=== PATIENT | male | born 1965 | race Hispanic/Latino ===

== ENCOUNTER 2024-09-25 18:53 | Emergency (ER) | payer BC, OTHER ==
[~2024-09-25] VITALS: Ht 175.3 cm; Wt 119.7 kg
[~2024-09-25 18:53] MED LIST: FURO20TA4 PO; OMEG100014 PO; SULF1TAB42 PO
--- NOTE | 2024-09-25 19:21 | ERN ---
ED Note History of Present Illness Stated Complaint: RUQ PAIN. RUE Chief Complaint: Abdominal Pain Time Seen by MD: 19:06 Time Seen by Midlevel: 19:06 Dictation: The patient is a 59-year-old male with history of hypertension who presents to the emergency department with complaints of right lower abdominal pain associated with nausea onset 2:30 p.m.. Patient denies any diarrhea or constipation. Reports pain radiates down his right leg. Patient denies any fevers but was febrile during triage. Allergies: Coded Allergies: No Known Drug Allergies (Unverified Allergy, Unknown, 02/20/14) Home Meds Active Scripts Sulfamethoxazole/Trimethoprim (Bactrim Ds Tablet) 1 Each Tablet, 1 EACH PO BID, #20 TAB Prov:GERMAN ELDRIDGE MD 03/13/14 Furosemide (Furosemide) 20 Mg Tablet, 20 MG PO Q3D PRN for EDEMA, #15 TAB 1 Ref ill Prov:SIMI VELARDE MD 02/21/14 Reported Medications [place]-3 Fatty Acids ([place]-3) 1,000 Mg Capsule, 1000 MG PO TID, CAP 02/21/14 Past Medical History Past Medical History: Hypertension Surgical History: None RN Note Reviewed/Agreed w/PFSH: Yes Review of System Dictation Constitutional: Negative for ,chills, and weight loss positive for fever Eyes: Negative for injury, pain,redness, and discharge ENT: Negative for injury,pain or swelling Cardiovascular: Negative for chest pain, palpitations, and edema Respiratory: Negative for shortness of breath, cough, and wheezing, Abdomen/GI: Negative for vomiting, diarrhea, and constipation positive for abdominal pain, nausea Back: Negative for injury and pain : Negative for injury, bleeding and discharge MS/Extremity: Negative for injury and deformity Skin: Negative for rash, and discoloration Neuro: Negative for headache, weakness, numbness, tingling, and seizure Psych: Negative for suicide ideation, homicidal ideation, and hallucinations Initial Vital Sign VS Vital Signs Date Time Temp Pulse Resp B/P (MAP) Pulse Ox O2 Delivery O2 Flow Rate FiO2 09/25/24 18:55 102.0 109 16 149/76 97 Room Air 0 09/25/24 20:18 21 Physical Exam Dictation Vital Signs reviewed General Appearance: Alert, oriented x 3, no acute distress, well developed, nourished. Head and Face: non-traumatic. Eyes: PERRL, pink conjunctivas, eyelid no trauma, anterior chamber with arcus senilis. Ears: Pinnas intact and no signs of trauma or erythema ear canals clear and no discharge TM no erythema Nose: No discharge, no bleeding. Oropharynx: Mouth normal, tongue pink. pharynx clear,no erythema, tonsils no exudates, no abscesses noted, mucous membrane moist Neck: Supple, non-tender, no thyromegaly, no masses, no JVD, no bruits Breast:Deferred Chest:No tenderness, no crepitus, no paradoxical movement, no retractions Lungs:Clear, well-ventilated, symmetric, no rales, no wheezing, no rhonchi, no stridor, good breath sounds bilaterally Heart: Regular rate, regular rhythm, no murmur, no gallops Vascular: no peripheral edema, Abdomen: Soft, positive bowel sounds, nondistended, no guarding, nontender, no rebound, no masses no hepatomegaly, no splenomegaly, no Charles's sign, no hernias. Rectal: Deferred Genital: Deferred Neurological: Normal speech, motor function intact, sensory function intact Musculoskeletal: Neck nontender, full range of motion, back nontender, full range of motion, Extremities: nontender, full range of motion Skin: Color pink, dry, no turgor, no rash, no lacerations, no abrasions, no contusions. Lymphatic: Deferred Results (Laboratory/Radiology) Laboratory/Radiology Laboratory Tests Test 09/25/24 19:50 09/25/24 22:23 09/25/24 23:15 White Blood Count 14.1 K/uL (4.8-10.8) H Red Blood Count 4.55 MIL/uL (4.50-6.20) Hemoglobin 14.3 g/dL (14.0-18.0) Hematocrit 41.8 % (42-54) L Mean Corpuscular Volume 91.9 fL (79-99) Mean Corpuscular Hemoglobin 31.4 pg (27.0-33.0) Mean Corpuscular Hemoglobin Concent 34.2 g/dL (32.0-36.0) Red Cell Distribution Width 12.0 % (11.0-15.5) Platelet Count 206 K/uL (130-400) Mean Platelet Volume 11.5 fL (7.5-10.5) H Immature Granulocyte % (Auto) 0.4 % (0-1) Neutrophils (%) (Auto) 87.8 % (40.0-77.0) H Lymphocytes (%) (Auto) 6.0 % (21.0-51.0) L Monocytes (%) (Auto) 5.2 % (3.0-13.0) Eosinophils (%) (Auto) 0.2 % (0.0-8.0) Basophils (%) (Auto) 0.4 % (0.0-5.0) Neutrophils # (Auto) 12.3 K/uL (1.8-7.7) H Lymphocytes # (Auto) 0.9 K/uL (1.0-4.8) L Monocytes # (Auto) 0.7 K/uL (0.1-1.0) Eosinophils # (Auto) 0.03 K/uL (0.00-0.70) Basophils # (Auto) 0.05 K/uL (0.00-0.20) Absolute Immature Granulocyte (auto 0.05 K/uL (0-1) Nucleated Red Blood Cells 0.0 % (0.0-0.19) White Cell Morphology Comment See comments Sodium Level 137 mmol/L (136-145) Potassium Level 4.1 mmol/L (3.5-5.1) Chloride Level 103 mmol/L (101-111) Carbon Dioxide Level 29 mmol/L (21-32) Blood Urea Nitrogen 12 mg/dL (7-18) Creatinine 1.1 mg/dL (0.5-1.3) Glomerular Filtration Rate Calc 78 mL/min (>90) Random Glucose 117 mg/dL (70-105) H Lactic Acid Level 1.6 mmol/L (0.8-2.5) Total Calcium 9.1 mg/dL (8.5-10.1) Total Bilirubin 0.5 mg/dL (0.2-1.0) Direct Bilirubin 0.1 mg/dL (0.0-0.3) Aspartate Amino Transf (AST/SGOT) 21 U/L (10-37) Alanine Aminotransferase (ALT/SGPT) 32 U/L (12-78) Alkaline Phosphatase 93 U/L (50-136) Troponin I High Sensitivity < 4 ng/L (4-75) L Total Protein 7.5 g/dL (6.0-8.3) Albumin 3.8 g/dL (3.5-5.0) Lipase 25 U/L (16-77) Urine Color COLORLESS (YELLOW) Urine Appearance CLEAR (CLEAR) Urine pH 6.5 (5.0-8.0) Urine Specific [place] 1.038 (1.001-1.031) Urine Protein NEGATIVE mg/dL (NEGATIVE) Urine Glucose (UA) NEGATIVE mg/dL (NEGATIVE) Urine Ketones NEGATIVE mg/dL (NEGATIVE) Urine Occult Blood NEGATIVE (NEGATIVE) Urine Nitrate NEGATIVE (NEGATIVE) Urine Bilirubin NEGATIVE mg/dL (NEGATIVE) Urine Urobilinogen 0.2 mg/dL (0.2-1.0) Urine Leukocyte Esterase NEGATIVE Violet/uL Urine RBC 2-5 /HPF (0-1) H Urine WBC 0-1 /HPF (0-1) Urine Bacteria None /HPF (None Seen) Influenza Type A Antigen Negative For Type A Influenza Type B Antigen Negative For Type B SARS-CoV-2 Antigen (Rapid) PRESUMPTIVE NEGATIVE Group A Streptococcus Rapid positive (NEGATIVE) *A REASON: right lower abd pain ORDERING PHYSICIAN: RALF MONTALVO NEUROLOGY SPECIALIST PROCEDURE: ABD PEL W - CT ABDOMEN/PELVIS W/CONTRAST CT ABDOMEN/PELVIS W/CONTRAST HISTORY: Bilateral abdominal pain COMPARISON: None TECHNIQUE: Multiple sequential axial images of the abdomen and pelvis were obtained from the dome of the diaphragm through symphysis pubis. Patient was given 100 cc of Omnipaque through intravenous route. Oral contrast was not given. FINDINGS: No pleural effusion is seen bilaterally. There is no evidence of parenchymal disease or pulmonary nodule of the visualized lower lungs. Degenerative changes of the thoracolumbar spine are present. The heart is not enlarged. Liver measures 22%. Gallbladder is distended. The liver, spleen, adrenal glands and pancreas are unremarkable. There is no evidence of hydronephrosis bilaterally. No evidence of renal stone is seen. Fecal material is seen in the colon. There are normal size retroperitoneal and mesenteric lymph nodes. No ascites is seen. No CT evidence of acute appendicitis is seen. Pelvic sidewalls are symmetric bilaterally. Bladder is well distended without wall thickening. IMPRESSION: 1. No acute findings. CT was performed with one or more following dose reduction techniques: automated exposure control, adjustment of the mA and kv according to patient's size, or use of a iterative reconstruction technique. Labs Reviewed?: Yes ED Course ED Course Orders Procedure Category Date Status Time Cbc With Differential LAB 09/25/24 Complete 19:11 Urinalysis Profile LAB 09/25/24 Complete 19:11 12 Lead Ekg Tracing- EKG 09/25/24 Complete Technical 19:11 Morphine 4mg Syg PHA 09/25/24 Complete (Morphine 4mg Syg) 19:30 Ondansetron 4mg Inj PHA 09/25/24 Complete (Zofran 4mg Inj) 19:30 Lipase LAB 09/25/24 Complete 19:11 Basic Metabolic Panel LAB 09/25/24 Complete 19:11 Hepatic Function Panel LAB 09/25/24 Complete 19:11 Blood Cult PORFIRIO 09/25/24 In Process 19:11 Acetaminophen 500mg PHA 09/25/24 Complete Tab (Tylenol 500mg T 19:30 Zosyn 3.375gm+Ns 50ml PHA 09/25/24 Complete (Zosyn 3.375gm+Ns 19:11 0.9%Nacl 1000ml (Ns PHA 09/25/24 Complete 1000ml) 19:30 Troponin I High LAB 09/25/24 Complete Sensitivity 19:11 Lactic Acid LAB 09/25/24 Complete 19:11 Ct Abdomen/Pelvis CT 09/25/24 Resulted W/Contrast 19:51 Iohexol (Omnipaque) PHA 09/25/24 Complete 20:59 Us Abdominal Ruq\Ltd US 09/25/24 Taken 21:40 Chest 1vw RAD 09/25/24 Taken 22:59 Covid19 (Sars Antigen LAB 09/25/24 Complete Rapid) 22:59 Influenza Type A & B, LAB 09/25/24 Complete Rapid 22:59 Rapid (Group A Strep) LAB 09/25/24 Complete 22:59 Ketorolac PHA 09/25/24 Complete Tromethamine 30mg/Ml 23:30 Current Medications Medications (Trade) Dose Ordered Sig/Travis Route PRN Reason Start Time Stop Time Status Last Admin Dose Admin Acetaminophen (TYLenol 500MG TAB) 1,000 mg ONCE ONCE PO 09/25/24 19:30 09/25/24 19:31 DC 09/25/24 20:10 Iohexol (Omnipaque) 35,000 mg STK-MED ONCE IV 09/25/24 20:59 09/25/24 20:59 DC Ketorolac Tromethamine (toRADol) 30 mg ONCE ONCE IM 09/25/24 23:30 09/25/24 23:31 DC 09/25/24 23:56 Morphine Sulfate (morPHINE 4MG SYG) 4 mg ONCE ONCE IVP 09/25/24 19:30 09/25/24 19:31 DC 09/25/24 20:02 Ondansetron HCl (zoFRAN 4MG INJ) 4 mg ONCE ONCE IVP 09/25/24 19:30 09/25/24 19:31 DC 09/25/24 20:10 Piperacillin Sod/ Tazobactam Sod 50 ml @ 200 mls/hr STAT STAT IVPB 09/25/24 19:11 09/25/24 19:25 DC 09/25/24 20:00 Sodium Chloride 3,591 ml @ 1,197 mls/hr ONCE ONCE IV 09/25/24 19:30 09/25/24 22:29 DC 09/25/24 20:00 Vital Signs Date Time Temp Pulse Resp B/P (MAP) Pulse Ox O2 Delivery O2 Flow Rate FiO2 09/25/24 23:58 98.4 76 18 102/49 98 Room Air* 0 21 09/25/24 21:42 98.2 92 18 108/61 95 Room Air* 0 21 09/25/24 20:48 98.2 95 18 122/69 100 Room Air* 0 21 09/25/24 20:18 102.0 102 20 100 Room Air* 0 21 09/25/24 20:10 102.0 09/25/24 18:55 102.0 109 16 149/76 97 Room Air 0 Medical Decision Making MDM The patient is a 59-year-old male with history of hypertension who presents to the emergency department with complaints of right lower abdominal pain associated with nausea onset 2:30 p.m.. Patient denies any diarrhea or constipation. Reports pain radiates down his right leg. Patient denies any fevers but was febrile during triage. CBC showed mild leukocytosis, no anemia, chemistry showed no electrolyte imbalance, GFR of 78, negative troponin, negative lipase, negative liver enzymes, urinalysis unremarkable, serology was positive for strep. CT abdomen and pelvis showed distended gallbladder no appendicitis. Patient's abdominal ultrasound revealed no acute pathology. X-ray showed no acute pathology. Patient reports improving in pain. Appears nontoxic in appearance. Patient reported he had been sick for the last two weeks with upper respiratory symptoms but currently denied any ear pain, sore throat or cough. Patient will be discharged on antibiotics and instructed to follow up with PCP. Differential diagnosis: Gastroenteritis, UTI, appendicitis, electrolyte imbalance, sepsis Need for hospitalization: Patient does not meet criteria for hospitalization. There are no social concerns with this patient. DX & DISP Disposition: Discharge Departure Impression: Primary Impression: Strep throat Additional Impressions: Fever, Abdominal pain, Leukocytosis Condition: Stable Scripts Amoxicillin/Potassium Clav (Amox Tr-K Clv 875-125 mg Tab) 875 Mg-125 Mg Tablet 1 EACH PO BID for 10 Days, #20 TAB 0 Refills Prov: RALF MONTALVO 09/26/24 Additional Instructions: Please take your antibiotics as prescribed. Until finished even if feeling better. Follow up with your primary doctor in 1-2 days. If symptoms worsen please return to ER. FOLLOW-UP WITH PRIMARY CARE PROVIDER IN 1 TO 2 DAYS. TAKE MEDICATIONS DIRECTED HERE IN THE EMERGENCY ROOM. OKAY TO CONTINUE HOME MEDICATIONS UNLESS OTHERWISE DISCUSSED DURING YOUR VISIT IN THE EMERGENCY ROOM TODAY. RETURN TO YOUR NEAREST EMERGENCY ROOM IF SYMPTOMS WORSEN OR IF THERE IS NO IMPROVEMENT. CALL 911 IF YOU NEED IMMEDIATE ASSISTANCE. TAKE TYLENOL OR MOTRIN [id number] NEEDED AND IF NO CONTRAINDICATIONS ARE PRESENT. INCREASE ORAL HYDRATION. A WOUND CULTURE OR URINE CULTURE WAS ORDERED HERE IN THE EMERGENCY ROOM DEPARTMENT PLEASE FOLLOW-UP WITH PRIMARY CARE PROVIDER AND ADVISE THEM TO GET REPEAT PORTS FROM OUR FACILITY. IF YOU HAD ANY DANIELLA WRAP/SPLINTS THAT WERE APPLIED HERE, PLEASE DO NOT REMOVE THEM UNTIL YOU SEE YOUR PRIMARY CARE OR SPECIALTY. Referrals: SELF,REFERRAL (PCP) Time of Disposition: 00:17 I have examined patient, & reviewed all documents, & agreed W/ the Diagnosis, and Plan RALF MONTALVO September 25, 2024 19:21
--- NOTE | 2024-09-25 19:38 | EKG ---
[facility] Test Date: 2024-09-25 Test Time: 19:34:27 Pat Name: SAYDA MCDANIEL Department: [facility] Room: Gender: M Infertility Nurse: 08 : [id number] Requested By: RALF MONTALVO Order Number: [id number] Reading MD: Josesito Enrique Measurements Intervals [place] Rate: 95 P: 51 VA: 156 QRS: 6 QRSD: 81 T: 27 QT: 323 QTc: 406 Interpretive Statements Sinus rhythm Compared to ECG 11/07/2014 22:15:25 No significant changes Electronically Signed On 09-26-2024 16:18:19 CDT by Josesito Enrique Please click the below link to view image of tracing.
--- NOTE | 2024-09-25 19:40 | NUR ---
PT ARRIVED TO ED C/O ABD PAIN, N/V AND FEVER. PT HAD BEEN SICK AT HOME FOR PAST COUPLE OF DAYS WORST TODAY. PT APPEARS GAURDING TO ABD, C/O HEADACHE AND N/V. AT BEDSIDE. PT IS A&O X4.
[2024-09-25] MEDS: ZOSYN 3.375GM+NS 50ML 50 ML IVPB STA (20:00)
[2024-09-25] MEDS: [UNRECOGNIZED DRUG - OTHER] IV ONE (20:00)
[2024-09-25] MEDS: morPHINE 4 MG SYG IVP ONE (20:02)
[2024-09-25 20:03] LABS: BASOPHILS % (AUTO) 0.4 % (0.0-5.0)
[2024-09-25 20:10] VITALS: TEMP 102
[2024-09-25 20:10] LABS: BASOPHILS # (AUTO) 0.05 K/uL (0.00-0.20); EOSINOPHILS # (AUTO) 0.03 K/uL (0.00-0.70); EOSINOPHILS % (AUTO) 0.2 % (0.0-8.0); HEMATOCRIT 41.8 % (42-54); IMMATURE GRANULOCYTE ABSOLUTE 0.05 K/uL (0-1); LYMPHOCYTES # (AUTO) 0.9 K/uL (1.0-4.8); MEAN CORPUSCULAR HEMOGLOBIN 31.4 pg (27.0-33.0); MEAN CORPUSCULAR HGB CONC 34.2 g/dL (32.0-36.0); MEAN CORPUSCULAR VOLUME 91.9 fL (79-99); MONOCYTES # (AUTO) 0.7 K/uL (0.1-1.0); MONOCYTES % (AUTO) 5.2 % (3.0-13.0); NEUTROPHILS # (AUTO) 12.3 K/uL (1.8-7.7); NEUTROPHILS % (AUTO) 87.8 % (40.0-77.0); PLATELET COUNT (AUTO) 206 K/uL (130-400); RED BLOOD CELL COUNT(AUTO) 4.55 MIL/uL (4.50-6.20); WHITE BLOOD COUNT (AUTO) 14.1 K/uL (4.8-10.8)
[2024-09-25] MEDS: ondanSETRON 4MG INJ IVP ONE (20:10)
[2024-09-25] MEDS: acetaMINOPHEN 500 MG TABLET PO ONE (20:10)
[2024-09-25 20:13] LABS: CREATININE 1.1 mg/dL (0.5-1.3); POTASSIUM 4.1 mmol/L (3.5-5.1)
[2024-09-25 20:18] LABS: ALBUMIN 3.8 g/dL (3.5-5.0); BILIRUBIN,DIRECT 0.1 mg/dL (0.0-0.3); BILIRUBIN,TOTAL 0.5 mg/dL (0.2-1.0); TOTAL PROTEIN, SERUM 7.5 g/dL (6.0-8.3)
[2024-09-25] MEDS ORDERED: IOHEXOL 350 MG/ML 100ML INFUS..BTL IV ONE (20:59)
--- NOTE | 2024-09-25 21:12 | NUR ---
PT TO CT SCAN AT THIS TIME
--- NOTE | 2024-09-25 21:31 | HMCIMG ---
CT ABDOMEN/PELVIS W/CONTRAST HISTORY: Bilateral abdominal pain COMPARISON: None TECHNIQUE: Multiple sequential axial images of the abdomen and pelvis were obtained from the dome of the diaphragm through symphysis pubis. Patient was given 100 cc of Omnipaque through intravenous route. Oral contrast was not given. FINDINGS: No pleural effusion is seen bilaterally. There is no evidence of parenchymal disease or pulmonary nodule of the visualized lower lungs. Degenerative changes of the thoracolumbar spine are present. The heart is not enlarged. Liver measures 22%. Gallbladder is distended. The liver, spleen, adrenal glands and pancreas are unremarkable. There is no evidence of hydronephrosis bilaterally. No evidence of renal stone is seen. Fecal material is seen in the colon. There are normal size retroperitoneal and mesenteric lymph nodes. No ascites is seen. No CT evidence of acute appendicitis is seen. Pelvic sidewalls are symmetric bilaterally. Bladder is well distended without wall thickening. IMPRESSION: 1. No acute findings. CT was performed with one or more following dose reduction techniques: automated exposure control, adjustment of the mA and kv according to patient's size, or use of a iterative reconstruction technique.
[2024-09-25 22:48] LABS: APPEARANCE,URINE CLEAR (CLEAR); BILIRUBIN,URINE NEGATIVE (NEGATIVE); COLOR,URINE COLORLESS (YELLOW); GLUCOSE, URINE (UA) NEGATIVE (NEGATIVE); KETONES,URINE NEGATIVE (NEGATIVE); LEUKOCYTE ESTERASE ,URINE NEGATIVE Leu/uL (NEGATIVE); NITRATE,URINE NEGATIVE (NEGATIVE); OCCULT BLOOD,URINE NEGATIVE (NEGATIVE); PH,URINE 6.5 (5.0-8.0); PROTEIN,URINE NEGATIVE (NEGATIVE); UROBILINOGEN,URINE 0.2 mg/dL (0.2-1.0)
[2024-09-25 22:55] LABS: ADD UA MICROSCOPIC YES
[2024-09-25 22:57] LABS: WBC,URINE 0-1 /HPF (0-1)
[2024-09-25 23:45] LABS: RAPID GROUP A STREP positive (NEGATIVE)
[2024-09-25 23:47] LABS: COVID19 (SARS ANTIGEN RAPID) PRESUMPTIVE NEGATIVE (NEGATIVE); INFLUENZA TYPE A Negative For Type A (NEGATIVE); INFLUENZA TYPE B Negative For Type B (NEGATIVE)
[2024-09-25] MEDS: ketOROlac 30MG VIAL (30MG/ML) IM ONE (23:56)
[2024-09-25 23:58] VITALS: BP 102/49; PULSE 76; RESP 18; TEMP 98.5; O2SAT 98
[2024-09-26] MEDS ORDERED: AMOX1TAB16 PO (00:17)
--- NOTE | 2024-09-26 09:14 | HMCIMG ---
Exam Type: CHEST 1VW Clinical Information: cough Comparison: None Findings: The lungs are clear of infiltrates. The heart is normal in size. The bony and soft tissue structures of the chest are unremarkable. Impression: Clear lungs.
--- NOTE | 2024-09-26 09:17 | HMCIMG ---
Exam Type: US ABDOMINAL RUQ\E\LTD Clinical Information: abd pain Comparison: None Findings: The liver shows fatty infiltration and is enlarged, measuring 17.7 cm and is otherwise unremarkable. Doppler evaluation shows patent portal and hepatic veins. The gallbladder shows no significant abnormalities. Specifically, no calculi are seen. No bile duct dilatation is noted. The gallbladder wall measures 1 mm. The common bile duct measures 6 mm. The right kidney measures 11.7 x 5 cm- it shows no hydronephrosis or calculi, masses or other abnormalities. The pancreas is unremarkable. The aorta and inferior vena cava show no significant abnormalities. IMPRESSION: FATTY LIVER INFILTRATION AND HEPATOMEGALY. OTHERWISE NORMAL RIGHT UPPER QUADRANT ABDOMINAL ULTRASOUND.
== END 2024-09-26 00:26 | disposition home or self-care (01) ==
LOC: EDH 18:53
DX: J02.0 Streptococcal pharyngitis (principal); R50.9 Fever, unspecified; R10.11 Right upper quadrant pain; D72.829 Elevated white blood cell count, unspecified; I10 Essential (primary) hypertension; Z79.899 Other long term (current) drug therapy; Z20.822 Contact with and (suspected) exposure to COVID-19
CPT/HCPCS: 99285; 74177; 96365; 76705; 96375; 71045; 96366; 87426; 80076; 84484; 80048; 83690; 85025; 87040 ×2; 87880; 87804 ×2; 83605; 81001; 36415; 93005; 96372; J1885; J7030; J2405; J2270; J2543; Q9967; 99284